=== PATIENT | female | born 1970 | race Caucasian/White ===

== ENCOUNTER 2019-04-12 12:09 | Emergency (ER) | payer OTHER, MEDICAID ==
[2019-04-12 12:39] LABS: ADD MAN DIFF? NO
[2019-04-12 12:46] LABS: WHITE BLOOD COUNT 5.7 10^3/ul (4.8-10.8)
[2019-04-12 12:46] LABS: BASOPHILS % 0.7 % (0.0-2.0); EOSINOPHILS # 0.1 10^3/ul (0.0-0.5); EOSINOPHILS % 1.6 % (0.0-7.0); HEMATOCRIT 44.9 % (37.0-47.0); LYMPHOCYTES # 1.6 10^3/ul (0.8-2.9); LYMPHOCYTES % 28.1 % (15.0-51.0); MEAN CORPUSCULAR HEMOGLOBIN 30.1 pg (29.0-33.0); MEAN CORPUSCULAR HGB CONC 33.4 g/dl (32.0-37.0); MEAN CORPUSCULAR VOLUME 90.2 fl (82.0-101.0); MONOCYTE # 0.4 10^3/ul (0.3-0.9); MONOCYTES % 6.2 % (0.0-11.0); NEUTROPHIL # 3.6 10^3/ul (1.6-7.5); PLATELET COUNT 265 10^3/UL (140-415); RED BLOOD COUNT 4.98 10^6/ul (4.20-5.40)
[2019-04-12] MEDS: LORAZEPAM 2 MG INJ IV (13:02)
[2019-04-12] MEDS: MECLIZINE 12.5 MG TAB PO (13:02)
[2019-04-12 13:05] LABS: ANION GAP 6 (5-13); BLOOD UREA NITROGEN 9 mg/dl (7-20); CALCIUM 9.7 mg/dl (8.4-10.2); CARBON DIOXIDE 32 mmol/L (21-31); CHLORIDE 103 mmol/L (97-110); CHOLESTEROL 249 mg/dl (100-200); CREATININE 0.65 mg/dl (0.44-1.00); Estimated GFR > 60 mL/min (>60); GLUCOSE 95 mg/dl (70-220); HDL CHOLESTEROL 61 mg/dl (37-92); LDL CHOLESTEROL,CALCULATED 167 mg/dl; POTASSIUM 3.9 mmol/L (3.5-5.1); SODIUM 141 mmol/L (135-144); TRIGLYCERIDES 104 mg/dl (0-149)
[2019-04-12 13:16] LABS: TROPONIN-I < 0.012 ng/ml (0.000-0.120)
[2019-04-12 13:27] LABS: HEMOGLOBIN A1C 5.3 % (0-5.9)
[2019-04-12 13:27] LABS: INR 0.96; PROTIME 12.9 Sec (11.9-14.9)
[2019-04-12 13:28] LABS: PARTIAL THROMBOPLASTIN TIME 30.4 Sec (23.0-35.0)
== END 2019-04-12 14:25 | disposition home or self-care (01) ==
LOC: E/R 12:09
DX: R42 Dizziness and giddiness (principal)
CPT/HCPCS: 36415; 70450; 71045; 80048; 80061; 83036; 84484; 85025; 85610; 85730; 93005; 96374; 99285-25